=== PATIENT | male | born 1950 | race Caucasian/White ===

== ENCOUNTER 2016-11-17 18:53 | Emergency (ER) | payer OTHER ==
[~2016-11-17] VITALS: Ht 180.3 cm; Wt 90.8 kg
[~2016-11-17 18:53] MED LIST: AMARYL2 MG; FENOFIBRATE134 M1; JANUVIA100 MG; PIOGLITAZONE HC30 MG; VIAGRA50 MG; [UNRECOGNIZED DRUG - OTHER] PO
[2016-11-17 19:24] LABS: HEMATOCRIT 34.5 % (38.0-50.0); MCH 30.6 PG (29.0-34.0); MCHC 34.8 G/DL (30.0-36.0); MEAN PLAT.VOLUME 10.1 uM^3 (9.0-12.4); PLATELET COUNT 245 K/uL (156-360); RBC DIS.WIDTH-CV 12.1 % (11.8-14.6); RED BLOOD COUNT 3.92 M/uL (4.00-5.50); WHITE BLOOD COUNT 8.8 K/uL (4.1-10.2)
[2016-11-17 19:33] LABS: CHLORIDE 102 mEq/L (99-109); POTASSIUM 3.8 mEq/L (3.7-5.4); SODIUM 133 mEq/L (136-147)
[2016-11-17 19:35] LABS: GLUCOSE 285 mg/dL (70-99)
[2016-11-17 19:37] LABS: ANION GAP 9 MEQ/L (2-14); TOTAL BILIRUBIN 0.6 mg/dL (0.0-1.0)
[2016-11-17 19:39] LABS: ALKALINE PHOSPHATASE 38 IU/L (3-129); GFR ESTIMATE (CALCULATED) 36 mL/min/
[2016-11-17 19:39] LABS: ADD MIUA? YES; BILIRUBIN NEGATIVE; BLOOD NEGATIVE; COLOR AMBER ((YELLOW)); GLUCOSE (STRIP) >=500; KETONES NEGATIVE; LEUKOCYTES NEGATIVE; NITRITE NEGATIVE; PROTEIN (STRIP) 30; SPECIFIC GRAVITY 1.015 (1.000-1.030); UROBILINOGEN 0.2 MG/DL (0.2-1.0)
[2016-11-17 19:40] LABS: UREA NITROGEN (BUN) 17 mg/dL (9-23)
[2016-11-17 19:42] LABS: LIPASE 11 U/L (1.0-51.0)
[2016-11-17 19:42] LABS: BACTERIA NONE SEEN /HPF; CALCIUM OXALATE CRYSTALS 1+ /HPF; EPITHELIAL CELLS RARE /HPF; MUCUS TRACE /LPF; RED BLOOD CELLS 0-5 /HPF (0-5); UCUL ADDED? NO; WHITE BLOOD CELLS 0-5 /HPF (0-5)
[2016-11-17] MEDS ORDERED: METFORMIN HCL500 MG PO (19:50)
[2016-11-17] MEDS ORDERED: JANUVIA100 MG PO (19:51)
[2016-11-17] MEDS ORDERED: PIOGLITAZONE HC30 MG PO (19:51)
[2016-11-17] MEDS ORDERED: FENOFIBRATE134 M1 PO (19:52)
[2016-11-17] MEDS ORDERED: LISINOPRIL2.5 MG PO (19:52)
[2016-11-17] MEDS ORDERED: GLIMEPIRIDE2 MG PO (19:53)
[2016-11-17] MEDS ORDERED: MULTIVITAMIN1 EAC2 PO (19:53)
[2016-11-17] MEDS ORDERED: FISH OIL 1,0001 EAC7 PO (19:54)
[2016-11-17] MEDS ORDERED: FLOMAX0.4 MG PO (20:07)
[2016-11-17] MEDS ORDERED: PERCOCET 5/31 TABLET PO (20:07)
[2016-11-17] MEDS ORDERED: ZOFRAN ODT4 MG PO (20:07)
[2016-11-17] MEDS ORDERED: PRILOSEC20 MG PO (20:24)
[2016-11-17 20:33] VITALS: BP 152/81
== END 2016-11-17 20:35 | disposition home or self-care (01) ==
LOC: EME 18:53
PROVIDERS: Nurse Practitioner Family
DX: N13.2 Hydronephrosis with renal and ureteral calculous obstruction (principal); K21.9 Gastro-esophageal reflux disease without esophagitis; E11.9 Type 2 diabetes mellitus without complications; Z87.891 Personal history of nicotine dependence; Z79.84 Long term (current) use of oral hypoglycemic drugs
CPT/HCPCS: 74176; 80053; 81003; 83690; 85027; 99281; 99285; J1885; J2405; J7030

== ENCOUNTER → 2016-11-21 | Outpatient (CLI) | payer MEDICARE, OTHER ==
[~2016-11-21] MED LIST changes: +FENOFIBRATE134 M1 PO; +FISH OIL 1,0001 EAC7 PO; +FLOMAX0.4 MG PO; +GLIMEPIRIDE2 MG PO; +JANUVIA100 MG PO; +LISINOPRIL2.5 MG PO; +METFORMIN HCL500 MG PO; +MULTIVITAMIN1 EAC2 PO; +PERCOCET 5/31 TABLET PO; +PIOGLITAZONE HC30 MG PO; +PRILOSEC20 MG PO; +ZOFRAN ODT4 MG PO
== END | disposition home or self-care (01) ==
LOC: CDC 11:14
DX: Z01.810 Encounter for preprocedural cardiovascular examination (principal)
CPT/HCPCS: 93000